=== PATIENT | male | born 1980 | race Caucasian/White ===

== ENCOUNTER → 2019-09-30 | Outpatient (CLI) | payer OTHER ==
[~2019-09-30] MED LIST: GADOTERATE 5 MMOL/10ML VIAL. INT ART ONE; IOHEXOL 300 MG/ML 50 ML VIAL. INT ART ONE; LIDOCAINE 1% Multi-Dose 20 ML VIAL. ID ONE
--- NOTE | 2019-09-30 12:38 | KCIC ---
Fluoroscopic guided right shoulder injection dated 09/30/2019: No comparison available. Clinical Indication: Gadolinium injection for MRI. Pain Technical factors: The potential benefits and risks of the procedure were discussed with the patient and informed consent was obtained. The anterior right shoulder was prepped and draped in a sterile fashion. After local anesthesia, a 22-gauge spinal needle was inserted into the right shoulder joint using an anterior approach.Following negative aspiration, 15 cc's of a solution of 5cc Omnipaque contrast, 5 cc 1% lidocaine, 10 cc normal saline, and 0.1 cc gadolinium was injected without difficulty. The needle was then removed and a dry sterile dressing was applied. The patient was then sent to the MR suite for imaging. The patient tolerated the procedure well. Findings: Single fluoroscopic image shows needle tip at the medial inferior 1/3 of the humeral head. Contrast material extends into the joint space. Impression: Fluoroscopic guided right shoulder injection for MRI as described above. Electronically signed by: Newton Kevin MD (09/30/2019 12:35 PM) [id number]
--- NOTE | 2019-09-30 13:33 | KCIC ---
MR arthrogram right shoulder dated 09/30/2019 11:45 AM Indication: Shoulder pain weakness history of labral tear. Comparison: No comparison is available. Technique: Routine multiplanar multisequence imaging performed. Study was performed after intra-articular injection of dilute gadolinium. The injection portion the study will be reported separately. Findings: Adequate distention of the joint space with contrast material. There is an irregular linear defect of the posterior superior labrum that extends from about 12:00 to 9:00, nondisplaced. The anterior and inferior labrum are intact. The glenoid articular cartilage is mildly thinned but otherwise intact. No full-thickness cartilage defect. No intra-articular loose body. Intermediate T2 signal within the supraspinatus and infraspinatus portions of the rotator cuff. No full-thickness tear or significant partial thickness defect. Subscapularis is intact. Long head biceps tendon is intact. Extra articular portion courses within the bicipital groove. Mild hypertrophic change of the AC joint. No significant undersurface spurring. No significant subacromial/subdeltoid bursal fluid collection. Acromion is type II morphology. Bone marrow signal is homogeneous. No marrow edema. Suprascapular and spinoglenoid notches are clear. IMPRESSION: 1. Small SLAP tear of the posterior superior labrum, not significantly displaced. 2. Mild rotator cuff tendinopathy with no evidence of full-thickness tear. 3. Mild AC joint arthropathy. Electronically signed by: Newton Kevin MD (09/30/2019 1:30 PM) [id number]
== END | disposition home or self-care (01) ==
LOC: KCIC 10:29
PROVIDERS: ATTEND Family Medicine
DX: S43.431D Superior glenoid labrum lesion of right shoulder, subsequent encounter (principal); X58.XXXD Exposure to other specified factors, subsequent encounter
CPT/HCPCS: 73040; 73222; A9575; Q9967